=== PATIENT | female | born 1970 | race Caucasian/White ===

== ENCOUNTER 2024-12-11 14:51 | Emergency (ER) | payer OTHER ==
[~2024-12-11] VITALS: Ht 170.2 cm; Wt 101.0 kg
[2024-12-11] MEDS ORDERED: TRIA25CR TOP (15:30)
[2024-12-11] MEDS ORDERED: LEVOTAB10 PO (15:30)
[2024-12-11] MEDS ORDERED: PRED20TA PO (16:40)
[2024-12-11] MEDS: FAMOTIDINE 20 MG TAB PO ONE (16:47)
[2024-12-11] MEDS: diphenhydrAMINE 50MG CAP PO ONE (16:47)
[2024-12-11] MEDS: predniSONE 20 MG TAB PO ONE (16:47)
[2024-12-11 16:57] VITALS: BP 142/94; TEMP 98; O2SAT 99
== END 2024-12-11 16:59 | disposition home or self-care (01) ==
LOC: M ED 14:51
DX: L23.89 Allergic contact dermatitis due to other agents (principal); Z88.8 Allergy status to other drugs, medicaments and biological substances; Z79.52 Long term (current) use of systemic steroids; Z79.899 Other long term (current) drug therapy
CPT/HCPCS: 99283; J7512